=== PATIENT | female | born 1955 | race Caucasian/White ===

== ENCOUNTER → 2017-02-08 | Outpatient (CLI) | payer SELFPAY ==
[2017-02-08 07:47] LABS: Basophils % (A) 0 %; CH 30.6; CHCM 32.7; Eosinophils # (A) 0.1 k/uL (0-0.7); Eosinophils % (A) 1 %; HCT 48.5 % (34.0-46.0); HDW 2.51; HGB 15.8 gm/dL (11.4-16.0); Luc # (Auto) 0.13; Luc % (Auto) 4; Lymphocytes # (A) 1.4 k/uL (1.0-4.8); Lymphocytes % (A) 38 %; MCH 30.6 pg (25.0-35.0); MCHC 32.5 g/dL (31.0-37.0); MCV 94.1 fL (80.0-100.0); Mean Platelet Volume 7.5; Monocytes # (A) 0.3 k/uL (0-1.0); Monocytes % (A) 8 %; Neutrophils # (A) 1.8 k/uL (1.3-7.7); Neutrophils % (A) 49 %; RBC 5.15 m/uL (3.80-5.40); RDW 13.8 % (11.5-15.5); WBC 3.6 k/uL (3.8-10.6); WBC (Perox) 3.44
[2017-02-08 11:19] LABS: DHEA Sulfate 38.4 ug/dL (26.0-430.0)
[2017-02-08 11:22] LABS: ALT 33 U/L (9-52); AST 23 U/L (14-36); Alkaline Phosphatase 74 U/L (38-126); Anion Gap 9 mmol/L; Blood Urea Nitrogen 13 mg/dL (7-17); Calcium 9.3 mg/dL (8.4-10.2); Carbon Dioxide 28 mmol/L (22-30); Chloride 104 mmol/L (98-107); Glucose 80 mg/dL (74-99); HDL Cholesterol 68 mg/dL (40-60); Non-African American GFR(MDRD) >60 (>60 ml/min/1.73 sqM); Potassium 4.5 mmol/L (3.5-5.1); Sodium 141 mmol/L (137-145); Total Bilirubin 0.6 mg/dL (0.2-1.3); Total Protein 7.3 g/dL (6.3-8.2); Triglycerides 137 mg/dL (<150)
[2017-02-08 11:33] LABS: Cholesterol 366 mg/dL (<200)
[2017-02-08 11:55] LABS: Estradiol 41 pg/mL
== END | disposition home or self-care (01) ==
LOC: LABWHC1 06:33
PROVIDERS: ATTEND Specialist
DX: E03.9 Hypothyroidism, unspecified (principal); D89.9 Disorder involving the immune mechanism, unspecified; F51.02 Adjustment insomnia; R53.83 Other fatigue; N95.9 Unspecified menopausal and perimenopausal disorder; E07.9 Disorder of thyroid, unspecified; E27.40 Unspecified adrenocortical insufficiency
CPT/HCPCS: 36415; 80053; 80061; 82306; 82533; 82627; 82670; 83090; 84144; 84439; 84443; 84481; 85025; 86141

== ENCOUNTER → 2017-03-12 | Outpatient (CLI) | payer SELFPAY | END | disposition home or self-care (01) | LOC: LABWHC1 09:30 | PROVIDERS: ATTEND Specialist | DX: E07.9 Disorder of thyroid, unspecified (principal); E34.9 Endocrine disorder, unspecified | CPT/HCPCS: 36415; 83970 ==

== ENCOUNTER → 2017-03-16 | Outpatient (CLI) | payer SELFPAY ==
--- NOTE | 2017-03-16 09:53 | USB ---
Reason for exam: follow-up at short interval from prior study. History: Patient is postmenopausal. Physical Findings: Nurse did not find any significant physical abnormalities on exam. US Breast BILAT Right breast ultrasound includes all four quadrants, the retroareolar region and axilla. Finding demonstrates a 0.4 x 0.3 x 0.9cm oval, mixed lesion at 2 o'clock. Left breast ultrasound includes all four quadrants, the retroareolar region and axilla. Finding demonstrates a 1.6 x 1.5cm area of dense shadowing tissue at 11 o'clock. These results were verbally communicated with the patient and result sheet given to the patient on 03/16/17. ASSESSMENT: Suspicious, BI-RAD 4 RECOMMENDATION: Follow-up diagnostic mammogram and ultrasound core biopsy of the left breast. If the mammogram is not performed a biosy is then recommended. Patient states she will follow up with Dr. Lopez first. PRELIMINARY REPORT CALLED AND FAXED TO DR. LOPEZ ON 03/16/17 AT 300/TMP.
== END | disposition home or self-care (01) ==
LOC: RADUSWWP 08:15
PROVIDERS: ATTEND Specialist
DX: N63 Unspecified lump in breast (principal); R92.8 Other abnormal and inconclusive findings on diagnostic imaging of breast

== ENCOUNTER → 2017-04-28 | Outpatient (CLI) | payer SELFPAY ==
--- NOTE | 2017-04-28 14:52 | US ---
EXAMINATION TYPE: US thyroid st tissue head/neck DATE OF EXAM: 04/28/2017 COMPARISON: NONE CLINICAL HISTORY: E03.9 Unspecified Acquired Hypothyroidism. Neck pain, patient on thyroid meds GLAND SIZE: Right Lobe: 4.4 x 1.1 x 1.1 cm Overall Parenchyma: homogenous Left Lobe: 4.1 x 1.1 x 1.2 cm Overall Parenchyma: homogeneous Isthmus Thickness: 0.2 cm NODULES RIGHT: # of nodules measured on right: 0 LEFT: # of nodules measured on left: 1 1. 0.2 X 0.2 x 0.3 cm hypoechoic mixed nodule at the lower pole with well-defined margins. This nod ule is wider than tall and shows no intranodular vascularity. Prior size: no previous ISTHMUS: # of nodules measured in the isthmus: 0 Bilateral neck scanned, no evidence of lymphadenopathy. IMPRESSION: Small nonspecific some centimeter nodule left thyroid lobe.
== END | disposition home or self-care (01) ==
LOC: RADUSWWP 14:11
PROVIDERS: ATTEND Specialist
DX: E04.1 Nontoxic single thyroid nodule (principal)
CPT/HCPCS: 76536

== ENCOUNTER → 2017-05-24 | Outpatient (CLI) | payer SELFPAY ==
[2017-05-24 07:39] LABS: Basophils % (A) 0 %; CHCM 32.6; Eosinophils # (A) 0.1 k/uL (0-0.7); Eosinophils % (A) 2 %; HCT 48.5 % (34.0-46.0); HDW 2.51; HGB 15.2 gm/dL (11.4-16.0); Luc # (Auto) 0.09; Luc % (Auto) 3; Lymphocytes # (A) 1.5 k/uL (1.0-4.8); Lymphocytes % (A) 41 %; MCH 30.1 pg (25.0-35.0); MCHC 31.4 g/dL (31.0-37.0); MCV 95.6 fL (80.0-100.0); Mean Platelet Volume 7.9; Monocytes # (A) 0.3 k/uL (0-1.0); Monocytes % (A) 7 %; Neutrophils # (A) 1.8 k/uL (1.3-7.7); Neutrophils % (A) 48 %; RBC 5.07 m/uL (3.80-5.40); WBC 3.7 k/uL (3.8-10.6); WBC (Perox) 3.76
[2017-05-24 10:17] LABS: ALT 36 U/L (9-52); AST 22 U/L (14-36); Alkaline Phosphatase 84 U/L (38-126); Anion Gap 13 mmol/L; Blood Urea Nitrogen 16 mg/dL (7-17); Calcium 9.4 mg/dL (8.4-10.2); Carbon Dioxide 26 mmol/L (22-30); Chloride 104 mmol/L (98-107); GGT 20 U/L (12-43); Glucose 76 mg/dL (74-99); Non-African American GFR(MDRD) >60 (>60 ml/min/1.73 sqM); Potassium 4.5 mmol/L (3.5-5.1); Sodium 143 mmol/L (137-145); Total Bilirubin 0.6 mg/dL (0.2-1.3); Total Protein 7.2 g/dL (6.3-8.2)
[2017-05-24 11:32] LABS: DHEA Sulfate 44.3 ug/dL (26.0-430.0)
== END | disposition home or self-care (01) ==
LOC: LABWHC1 06:55
PROVIDERS: ATTEND Specialist
DX: E78.5 Hyperlipidemia, unspecified (principal); E27.40 Unspecified adrenocortical insufficiency; E03.9 Hypothyroidism, unspecified; D89.9 Disorder involving the immune mechanism, unspecified; F51.02 Adjustment insomnia; N95.9 Unspecified menopausal and perimenopausal disorder; E07.9 Disorder of thyroid, unspecified; E55.9 Vitamin D deficiency, unspecified; R63.4 Abnormal weight loss; R53.83 Other fatigue; R79.89 Other specified abnormal findings of blood chemistry
CPT/HCPCS: 36415; 80053; 82024; 82306; 82627; 82670; 82728; 82977; 83090; 83735; 83970; 84140; 84144; 84439; 84443; 84481; 84482; 85025; 85384; 86141

== ENCOUNTER → 2017-08-17 | Outpatient (CLI) | payer SELFPAY ==
[2017-08-17 08:50] LABS: Basophils % (A) 0 %; CH 30.2; CHCM 31.8; Eosinophils # (A) 0.1 k/uL (0-0.7); Eosinophils % (A) 2 %; HCT 45.9 % (34.0-46.0); HDW 2.43; HGB 14.4 gm/dL (11.4-16.0); Luc # (Auto) 0.08; Luc % (Auto) 3; Lymphocytes # (A) 1.1 k/uL (1.0-4.8); Lymphocytes % (A) 37 %; MCHC 31.4 g/dL (31.0-37.0); MCV 95.7 fL (80.0-100.0); Mean Platelet Volume 7.6; Monocytes # (A) 0.2 k/uL (0-1.0); Monocytes % (A) 7 %; Neutrophils # (A) 1.5 k/uL (1.3-7.7); Neutrophils % (A) 51 %; RBC 4.79 m/uL (3.80-5.40); RDW 13.9 % (11.5-15.5); WBC (Perox) 2.87
[2017-08-17 09:11] LABS: ALT 36 U/L (9-52); AST 25 U/L (14-36); Alkaline Phosphatase 70 U/L (38-126); Anion Gap 7 mmol/L; Blood Urea Nitrogen 12 mg/dL (7-17); Calcium 9.1 mg/dL (8.4-10.2); Carbon Dioxide 28 mmol/L (22-30); Chloride 107 mmol/L (98-107); Glucose 84 mg/dL (74-99); Non-African American GFR(MDRD) >60 (>60 ml/min/1.73 sqM); Potassium 4.9 mmol/L (3.5-5.1); Sodium 142 mmol/L (137-145); Total Bilirubin 0.5 mg/dL (0.2-1.3); Total Protein 6.5 g/dL (6.3-8.2)
[2017-08-17 16:00] LABS: Estradiol <11.8 pg/mL
== END | disposition home or self-care (01) ==
LOC: LABWHC1 07:44
PROVIDERS: ATTEND Specialist
DX: E78.5 Hyperlipidemia, unspecified (principal); R79.89 Other specified abnormal findings of blood chemistry; R53.83 Other fatigue; E27.40 Unspecified adrenocortical insufficiency; E03.9 Hypothyroidism, unspecified; D89.9 Disorder involving the immune mechanism, unspecified; F51.02 Adjustment insomnia; E78.6 Lipoprotein deficiency; N95.9 Unspecified menopausal and perimenopausal disorder; E63.9 Nutritional deficiency, unspecified; R63.5 Abnormal weight gain; F41.9 Anxiety disorder, unspecified
CPT/HCPCS: 36415; 80053; 82040; 82670; 82728; 84144; 84270; 84403; 84439; 84443; 84481; 84482; 85025; 85384

== ENCOUNTER → 2018-02-03 | Outpatient (CLI) | payer SELFPAY ==
[2018-02-03 07:57] LABS: Basophils % (A) 0 %; Eosinophils % (A) 1 %; HCT 43.4 % (34.0-46.0); HGB 14.5 gm/dL (11.4-16.0); Lymphocytes # (A) 1.2 k/uL (1.0-4.8); Lymphocytes % (A) 39 %; MCHC 33.5 g/dL (31.0-37.0); MCV 89.4 fL (80.0-100.0); Mean Platelet Volume 6.9; Monocytes # (A) 0.2 k/uL (0-1.0); Monocytes % (A) 7 %; Neutrophils # (A) 1.6 k/uL (1.3-7.7); Neutrophils % (A) 51 %; Platelet Count 256 k/uL (150-450); RBC 4.85 m/uL (3.80-5.40); RDW 13.8 % (11.5-15.5); WBC 3.2 k/uL (3.8-10.6)
[2018-02-03 09:08] LABS: ALT 26 U/L (9-52); AST 24 U/L (14-36); Alkaline Phosphatase 70 U/L (38-126); Anion Gap 11 mmol/L; Blood Urea Nitrogen 17 mg/dL (7-17); Calcium 9.1 mg/dL (8.4-10.2); Carbon Dioxide 28 mmol/L (22-30); Chloride 104 mmol/L (98-107); Cholesterol 288 mg/dL (<200); Glucose 71 mg/dL (74-99); HDL Cholesterol 75 mg/dL (40-60); LDL Cholesterol,Calculated 199 mg/dL (0-99); Sodium 143 mmol/L (137-145); Total Bilirubin 0.6 mg/dL (0.2-1.3); Total Protein 6.4 g/dL (6.3-8.2); Triglycerides 72 mg/dL (<150)
[2018-02-03 09:24] LABS: T4, Free (Free Thyroxine) 0.78 ng/dL (0.78-2.19)
[2018-02-03 11:47] LABS: C Reactive Protein, High Sens 0.74 mg/L (0.000-3.000)
[2018-02-03 11:57] LABS: Progesterone 8.3 ng/mL
[2018-02-03 11:58] LABS: DHEA Sulfate 46.2 ug/dL (26.0-430.0)
[2018-02-03 11:59] LABS: Insulin Level 2.4 mIU/mL (3.0-25.0); Vitamin D 25 Hydroxy 48.3 ng/mL (30.0-100.0)
[2018-02-03 15:06] LABS: Hemoglobin A1C 5.3 % (4.0-6.0)
== END | disposition home or self-care (01) ==
LOC: LABWHC1 07:01
PROVIDERS: ATTEND Specialist
DX: E27.40 Unspecified adrenocortical insufficiency (principal); R79.89 Other specified abnormal findings of blood chemistry; E78.5 Hyperlipidemia, unspecified; E34.9 Endocrine disorder, unspecified; R53.83 Other fatigue; E63.9 Nutritional deficiency, unspecified; R63.5 Abnormal weight gain; E07.9 Disorder of thyroid, unspecified; N95.9 Unspecified menopausal and perimenopausal disorder; E78.6 Lipoprotein deficiency; F51.02 Adjustment insomnia; E03.9 Hypothyroidism, unspecified; D89.9 Disorder involving the immune mechanism, unspecified
CPT/HCPCS: 36415; 80053; 80061; 82306; 82533; 82627; 82670; 82728; 83036; 83090; 83525; 83789; 84140; 84144; 84439; 84443; 84481; 85025; 85384; 86141